=== PATIENT | female | born 1980 | race Caucasian/White ===

== ENCOUNTER 2016-11-22 00:14 | Emergency (ER) | payer OTHER ==
[~2016-11-22] VITALS: Ht 172.7 cm; Wt 54.4 kg
[2016-11-22] MEDS ORDERED: PROZAC20 MG ORAL (00:24)
[2016-11-22] MEDS ORDERED: ZYPREXA5 MG ORAL (00:24)
[2016-11-22] MEDS ORDERED: PSEUDOEPHEDRINE30 MG PO (00:49)
[2016-11-22] MEDS ORDERED: FLONASE ALLERG9.9 ML NS (00:49)
[2016-11-22] MEDS ORDERED: IBUPROFEN600 MG ORAL (00:49)
--- NOTE | 2016-11-22 00:51 | Emergency Room Report ---
History of Present Illness General Chief Complaint: Headache Source: Patient Present Illness HPI 36YOF with 2-3 days left sided sore throat assoc with nasal congestion, rhinorrhea No fever/chills, cough, SOB, chest pain Didnt take any OTC meds No history of frequent strep throat Allergies: Coded Allergies: PENICILLINS (Verified Allergy, Unknown, 11/22/16) Patient History Past Medical History: none Past Surgical History: none Pertinent Family History: none Social History: Denies: smoking, alcohol use, drug use Last Menstrual Period: 2011 Now: No Immunizations: UTD Reviewed Nursing Documentation: PMH: Agreed, PSxH: Agreed Nursing Documentation-PMH History Of Psychiatric Problem: Yes Review of Systems All Other Systems: negative except mentioned in HPI Physical Exam Vital Signs Date Time Temp Pulse Resp B/P (MAP) Pulse Ox O2 Delivery O2 Flow Rate FiO2 11/22/16 00:18 98.1 99 16 119/78 99 Room Air Sp02 EP Interpretation: reviewed, normal General Appearance: normal inspection, well appearing, no apparent distress, alert, GCS 15, non-toxic Head: normocephalic, atraumatic Eyes: bilateral eye PERRL, bilateral eye EOMI ENT: normal ENT inspection, hearing grossly normal, normal pharynx, no angioedema, normal voice, TMs + canals normal, uvula midline, moist mucus membranes, nasal congestion Neck: normal inspection, full range of motion, supple, no bony tend Respiratory: normal inspection, lungs clear, normal breath sounds, no respiratory distress, no retraction, no wheezing Cardiovascular #1: regular rate, rhythm, no edema Gastrointestinal: normal inspection, normal bowel sounds, non tender, soft, no guarding, no hernia Genitourinary: no CVA tenderness Musculoskeletal: normal inspection, back normal, normal range of motion, Jimi' s Sign negative Neurologic: normal inspection, alert, oriented x3, responsive, relief master III-XII nml as tested, motor strength/tone normal, speech normal Psychiatric: normal inspection, judgement/insight normal, mood/affect normal Skin: normal inspection, normal color, no rash Medical Decision Making Diagnostic Impression: Primary Impression: Pharyngitis Qualified Codes: J02.9 - Acute pharyngitis, unspecified ER Course Viral pharyngitis Afebrile No exudates, erythema Assoc viral symptoms Rx Motrin, flonase/sudafed PMD followup DC home Last Vital Signs Date Time Temp Pulse Resp B/P (MAP) Pulse Ox O2 Delivery O2 Flow Rate FiO2 11/22/16 00:18 98.1 99 16 119/78 99 Room Air Status: improved Disposition: HOME, SELF-CARE Condition: Improved Scripts Pseudoephedrine Hcl* (SUDAFED*) 30 Mg Tablet 30 MG PO BID for sinus congestion for 3 Days, #6 TAB Prov: VIRY RODRIGEZ M.D. 11/22/16 Fluticasone Propionate (Flonase Allergy Relief) 9.9 Ml [place].susp 9.9 ML NS BID for 7 Days, #1 UNIT Prov: VIRY RODRIGEZ M.D. 11/22/16 Ibuprofen* (MOTRIN*) 600 Mg Tablet 600 MG ORAL THREE TIMES A DAY for 7 Days, #30 TAB 0 Refills Prov: VIRY RODRIGEZ M.D. 11/22/16 Patient Instructions: Sore Throat, [id number] Additional Instructions: - Drink plenty of water - Take motrin every 8hours with food as needed for sore throat/headache - Use flonase to decongest your nose - Can also take sudafed for 2 days MAX - Follow up with your primary care doctor in 3 days VIRY RODRIGEZ M.D. Nov 22, 2016 00:51
[2016-11-22 00:57] VITALS: BP 119/78
[2016-11-22 01:08] VITALS: BP 119/78
== END 2016-11-22 01:08 | disposition home or self-care (01) ==
LOC: EMR 00:50
DX: J02.9 Acute pharyngitis, unspecified (principal); Z88.0 Allergy status to penicillin
CPT/HCPCS: 99284